=== PATIENT | male | born 1980 ===

== ENCOUNTER 2021-10-20 12:37 | Outpatient (REF) | payer OTHER, SELFPAY ==
[2021-10-20 13:09] LABS: COVID-19 Test Negative (Negative)
== END 2021-10-20 12:38 | disposition home or self-care (01) ==
LOC: HO.LAB 12:37
PROVIDERS: Visit Provider Internal Medicine
DX: Z20.822 Contact with and (suspected) exposure to COVID-19 (principal)
CPT/HCPCS: 87635; C9803

== ENCOUNTER 2023-04-04 10:17 | Inpatient (IN) | payer MEDICAID, SELFPAY ==
[2023-04-04 10:25] VITALS: BP 142/102; PULSE 117; RESP 20; TEMP 36.3; O2SAT 97; BMI 36.2
--- NOTE | 2023-04-04 12:18 | ED.ALLEREA ---
HPI - Allergic Reaction General Chief complaint: Allergic Reaction Stated complaint: ? Stung by Wasp R Hand & L Leg Infection Time Seen by Provider: 04/04/23 11:21 Source: patient Mode of arrival: ambulatory Limitations: no limitations History of Present Illness HPI narrative: 43-year-old male presents with redness, swelling, warmth to left thigh and right hand status post suspected insect bite that occurred possibly on Sunday, patient states that he woke up and noticed what appeared to be insect bites on his thigh and hand. Since then redness, pain, swelling has worsened. This is never happened to him before. He tells me he thinks it was a blue walk office that he looked up online and match the description of an insect this flying around his home however patient unsure. He reports subjective chills, fatigue, malaise. No fevers, chest pain, shortness of breath, nausea, vomiting, abdominal pain, headache, vision changes or dizziness. Related Data Allergies Allergy/AdvReac Type Severity Reaction Status Date / Time No Known Allergies Allergy Verified 04/04/23 10:28 Review of Systems Review of Systems: Constitutional : No Weight loss, No Fever, No Chills, No Fatigue, No Malaise ENT/Mouth : No sore throat, No Rhinorrhea Eyes: No Eye Pain, No Swelling, No Redness Cardiovascular : No Chest Pain, No SOB, No Dyspnea on Exertion, No Orthopnea, No Edema, No Palpitations Respiratory : No Cough, No Sputum, No Wheezing Gastrointestinal : No Nausea, No Vomiting, No Diarrhea, No Constipation, No abdominal Pain, No Hematochezia, No Melena Genitourinary : No Dysuria, No Urinary Frequency, No Hematuria, Musculoskeletal : No joint pain, No Myalgias, No Joint Swelling Skin : No Skin Lesions, + rash Neuro : No Weakness, No Numbness, No Dizziness, No Headache Psych : No Anxiety/Panic, No Depression Heme/Lymph: No Bruising, No Bleeding,No Lymphadenopathy All other systems reviewed and are negative Yes all other systems are reviewed and are negative [facility] Past Medical History Attestation statement: The following information was validated with the patient. Source: old records reviewed and nursing notes reviewed Social History Social History Advance Directives: No Advance Directives Information Provided: Yes Physical Exam ED Vital Signs: Vital Signs - 24 hr 04/04/23 10:25 Temperature 97.3 F Pulse Rate 117 H Respiratory Rate 20 Blood Pressure 142/102 H Pulse Oximetry 97 Oxygen Delivery Method Room Air BMI result Body Mass Index 36.2 vss Appearance: Alert.? Oriented X3.? No acute distress.? Head: Normocephalic, atraumatic, no step-offs or deformities Eyes: Pupils equal, round and reactive to light.? Neck: Normal inspection.? Neck supple.? CVS: Normal heart rate and rhythm.? Pulses normal.? Respiratory: No respiratory distress.? Breath sounds normal.? Abdomen: Soft and nontender.? Skin: Skin warm and dry.? Normal skin color.? Normal skin turgor.? Extremities: No lower extremity edema.? No calf ttp. 5/5 strength to bilateral upper and lower extremities + Swollen right hand w/ decreased rom d/t swelling not painful. Errythema and warmth to r hand w/ streaking to RUE also errythema and warmth L thigh w/ overlying ? insect bites. 2+ radial pulses equal and b/l. Normal UE cap refill b/l. ( images below) Neuro: Oriented X 3.? No motor deficit.? No sensory deficit. CN 2-12 intact Course Reevaluation(s) Reevaluation #1: CBC with leukocytosis, no predominance of eosinophils low suspicion that this is an acute allergic/histamine reaction likely cellulitis with streaking. Chemistry pending however plan is for hospital admission. Alex ordered, hospitalist aware and will accept admission Time: 12:48 Medications Administered Discontinued Medications Generic Name Dose Route Start Last Admin Trade Name Freq PRN Reason Stop Dose Admin Diphenhydramine HCl 50 mg 04/04/23 11:52 04/04/23 12:33 Diphenhydramine Hcl 50 Mg/Ml Vial IVPUSH 04/04/23 11:53 50 mg ONCE ONE Administration Methylprednisolone Sodium Succinate 125 mg 04/04/23 11:52 04/04/23 12:30 Methylprednisolone Sod Succ 125 Mg/2 Ml Vial IVPUSH 04/04/23 11:53 125 mg ONCE ONE Administration Medical Decision Making Medical Decision Making [facility] Narrative: 1235 43-year-old male presents with suspected bug bite to right hand and left thigh worsening over the past 3 days. Reports redness, swelling, warmth to affected areas. Physical examination with Swollen right hand w/ decreased rom d/t swelling not painful. Errythema and warmth to r hand w/ streaking to RUE also errythema and warmth L thigh w/ overlying ? insect bites. 2+ radial pulses equal and b/l. Normal UE cap refill b/l. Please refer to images in the physical exam portion of chart for further details. Concerns for allergic reaction with possible superimposed cellulitis and possible lymphangitic spread. This also could be a histamine reaction. No signs of threatened limb or septic joint at this time. Decreased range of motion likely secondary to edema not from pain. No signs of osteo Plan- labs, lactic, cultures. No indication for imaging. Will give IV steroids and benadryl and wait for labs to determine need for atbx Differential Diagnosis Differential Diagnoses: The differential diagnosis associated with the presentation includes Concerns for allergic reaction with possible superimposed cellulitis and possible lymphangitic spread. This also could be a histamine reaction. No signs of threatened limb or septic joint at this time. Decreased range of motion likely secondary to edema not from pain. No signs of osteo Admission/Observation Consideration of admission/observation: Escalation of care including admission/observation considered Likely Lab Data MDM Lab Attestation statement: I reviewed the patient's lab results. 04/04/23 12:21 04/04/23 12:21 Labs: Lab Results 04/04/23 Range/Units 12:21 WBC 13.0 H (4.8-10.8) X10*3/uL RBC 5.87 H (4.60-5.80) X10*6/uL Hgb 17.9 (14.0-18.0) g/dl Hct 52.7 H (42.0-52.0) % MCV 89.8 (80.0-98.0) fL MCH 30.5 (27.0-33.0) pg MCHC 34.0 (31.0-36.0) g/dl RDW 12.3 (11.0-16.0) % Plt Count 217 (160-400) X10*3/uL MPV 10.2 (9.4-12.4) fL Immature Gran % (Auto) 0.5 H (0.0-0.4) % Neut % (Auto) 69.7 (45-73) % Lymph % (Auto) 18.6 L (20-40) % Maries % (Auto) 7.6 (2-11) % Eos % (Auto) 3.4 (0-4) % Baso % (Auto) 0.2 (0-2) % Lymph # (Auto) 2.4 (1.2-4.9) X10*3/uL Maries # (Auto) 1.0 (0.1-1.2) X10*3/uL Eos # (Auto) 0.4 (0.0-0.4) X10*3/uL Baso # (Auto) 0.0 (0.0-0.2) X10*3/uL Abs Immat Gran (auto) 0.06 H (0.00-0.03) X10*3/uL Absolute Neuts (auto) 9.1 H (2.0-8.3) x10*3/uL Absolute Nucleated RBC 0.000 (0.0-0.012) X10*3/uL Nucleated RBC % (auto) 0.0 (0.0-0.2) /100WBC Core Measures AMI core measures followed: Yes Measure exclusions: not indicated Critical Care Time Critical Care Time Critical Care Time: Yes Total Critical Care Time: 35 Attestation: I attest to this time spent taking care of the patient, obtaining history, physical, reviewing labs, imaging, speaking to my attending, speaking to specialist. Discharge Plan Discharge Clinical Impression: Cellulitis, Allergic reaction, Swelling of right hand Patient Disposition: Still a Patient Instructions: Insect Bite or Sting (ED), General Allergic Reaction (ED), Allergy Testing (ED) Referrals: Physician,None [Primary Care Provider] - 2 days
--- NOTE | 2023-04-04 12:35 | PC.NURSE ---
labs collected and sent to lab, iv inserted by Pa, medicated per MAR
--- NOTE | 2023-04-04 12:58 | PHA.MEDREC ---
Pharmacy Consult ? Medication Reconciliation Pharmacy has completed the medication reconciliation.
--- NOTE | 2023-04-04 13:00 | PC.NURSE ---
abx infusing per mar.
--- NOTE | 2023-04-04 13:24 | PM.IMHP ---
History of Present Illness Date of Service: 04/04/23 Attending physician on admission: Ivett Churchill Chief Complaint: cellulitis, lymphangitis 43-year-old male without significant medical history presented to the ED earlier today for evaluation of an insect bite. He reports yesterday at around 02:00, he awoke and had been bit by an unknown insect. He suspects it was a wasp but he is unsure. He has no known allergies to insects. He sustained several bites on the right hand and 2 on the left thigh. The bites been itchy and then when he awoke this morning his right hand was significantly swollen and noted red streaking up the right arm. This swelling has become so significant he is unable to close his right fist. On arrival, patient afebrile but tachycardic to 117. But is otherwise normal. There is leukocytosis of 13.0 without eosinophilic predominance. Renal function and electrolyte levels normal. CRP 2.91, ESR 6. In the ED treated empirically with IV zosyn, 125 mg IV methylprednisolone, and IV Benadryl. Review of Systems Review of Systems: General: No fevers, malaise, unintentional weight loss HEENT: No blurred vision, diplopia. No sore throat, nasal congestion, rhinorrhea, sinus pain, ear pain Cardiovascular: No chest pain, palpitations, or leg edema Respiratory: No shortness of breath, wheezing, cough GI: No abdominal pain, nausea, vomiting, diarrhea, constipation, melena, hematochezia : No dysuria, hematuria, increased urinary frequency, decreased urinary output MSK: No myalgia, back pain. Neuro: No headaches, weakness, paresthesias Skin: No rashes or lesions. +swelling/erythema right hand and left thigh with insect bites [facility] Medical History (Updated 04/04/23 @ 13:33 by BALBIR Child) No pertinent past medical history Social History (Updated 04/04/23 @ 13:35 by BALBIR Child) Alcohol intake: never Patient Tobacco Use Status: Current everyday Tobacco user Cigarette Packs Per Day: 1 Meds Allergies Allergy/AdvReac Type Severity Reaction Status Date / Time No Known Allergies Allergy Verified 04/04/23 10:28 Active Medications: Current Medications Acetaminophen (Acetaminophen 325 Mg Tablet) 650 mg PO Q6H PRN PRN Reason: Pain, Mild (Pain Scale 1-3) Diphenhydramine HCl (Diphenhydramine Hcl 50 Mg/Ml Vial) 25 mg IVPUSH Q4H PRN PRN Reason: Itching Docusate Sodium (Docusate Sodium 100 Mg Capsule) 100 mg PO DAILY PRN PRN Reason: Constipation Enoxaparin Sodium (Enoxaparin Sodium 40 Mg/0.4 Ml Syringe) 40 mg SUBCUT Q24H [facility] Cefazolin Sodium/Dextrose (Ancef) 2 gm in 50 mls @ 100 mls/hr IV Q8H [facility] Methylprednisolone Sodium Succinate (Methylprednisolone Sod Succ 40 Mg/Ml Vial) 40 mg IVPUSH Q8H [facility] Ondansetron HCl (Ondansetron Hcl 4 Mg/2 Ml Vial) 4 mg IVPUSH Q8H PRN PRN Reason: Nausea and Vomiting Pharmacy Consult (Consult Rx Perform Med Rec) 1 each MISCELLANE ONCE PRN PRN Reason: Consult order Sodium Chloride (0.9 % Sodium Chloride Flush 3 Ml Syringe) 3 ml IVFLUSH QSHIFT [facility] Home Medications Medication Instructions Recorded Confirmed Last Taken Type No Known Home Meds 04/04/23 04/04/23 Unknown History Physical Exam Vital Signs and Narrative: Vital Signs: Last Vital Signs Temp 97.3 F 04/04/23 10:25 Pulse 117 H 04/04/23 10:25 Resp 20 04/04/23 10:25 BP 142/102 H 04/04/23 10:25 Pulse Ox 97 04/04/23 10:25 O2 Del Method Room Air 04/04/23 10:25 BMI result Body Mass Index 36.2 Constitutional - Awake and Alert, No apparent distress Eyes - PERRLA, EOMI Cardiovascular - S1S2, RRR, No edema Respiratory - Normal lung expansion, Normal respiratory effort, No respiratory distress, CTA bilaterally Extremities - no calf tenderness bilaterally, no swelling. Unable to close right hand to make fist 2/2 swelling Skin - Warm/Dry. Significant swelling, warmth, erythema right hand with tiny punctures on the dorsum of the hand with erythematous streaking extending from the hand to the axilla. There are also two punctures on the left thigh with surround erythema and wamrth. See photos Neurological - Alert & oriented x3 Results Labs 04/04/23 12:21 04/04/23 12:21 Labs: Laboratory Results - last 24 hr 04/04/23 04/04/23 04/04/23 12:21 12:21 12:21 MCV 89.8 MCH 30.5 MCHC 34.0 RDW 12.3 Plt Count 217 MPV 10.2 Immature Gran % (Auto) 0.5 H Neut % (Auto) 69.7 Lymph % (Auto) 18.6 L Grainger % (Auto) 7.6 Eos % (Auto) 3.4 Baso % (Auto) 0.2 Lymph # (Auto) 2.4 Grainger # (Auto) 1.0 Eos # (Auto) 0.4 Baso # (Auto) 0.0 Abs Immat Gran (auto) 0.06 H Absolute Neuts (auto) 9.1 H Absolute Nucleated RBC 0.000 Nucleated RBC % (auto) 0.0 ESR Anion Gap 14 Estim Creat Clear Calc 128.4 Estimated GFR > 60 Random Glucose 123 H Lactic Acid 1.6 Calcium 10.2 Magnesium 2.1 Total Bilirubin 0.6 AST 13 ALT 26 Alkaline Phosphatase 75 C-Reactive Protein 2.91 H Total Protein 8.1 H Albumin 4.5 COVID-19 ([facility]) COVID-19 Dtime 04/04/23 04/04/23 12:21 12:28 MCV MCH MCHC RDW Plt Count MPV Immature Gran % (Auto) Neut % (Auto) Lymph % (Auto) Grainger % (Auto) Eos % (Auto) Baso % (Auto) Lymph # (Auto) Grainger # (Auto) Eos # (Auto) Baso # (Auto) Abs Immat Gran (auto) Absolute Neuts (auto) Absolute Nucleated RBC Nucleated RBC % (auto) ESR 6 Anion Gap Estim Creat Clear Calc Estimated GFR Random Glucose Lactic Acid Calcium Magnesium Total Bilirubin AST ALT Alkaline Phosphatase C-Reactive Protein Total Protein Albumin COVID-19 ([facility]O) Negative COVID-19 Clin [facility] See Note Assessment and Plan (1) Cellulitis: Status: Acute (2) Swelling of right hand: Status: Acute (3) Allergic reaction: Status: Acute Plan 43-year-old male without significant medical history admitted to the hospital for for the management of insect bite with cellulitis, lymphangitis, and sepsis. #Insect bites with Acute cellulitis R hand with lymphangitic streaking and sepsis -Leukocytosis 13.0, tachycardia. Lactic acid normal, no end organ damage. No severe sepsis/shock -IV cefazolin q8h -IV methylprednisolone 40mg BID, transition to PO as appropriate -IV benadryl q4h prn -Follow CBC, cultures #Cigarette smoker -smokes 1ppd, declines NRT -Smoking cessation counseling provided DVT prophylaxis- lovenox Full code Pt requires inpt stay at least 2 midnights for management of acute cellulitis with lymphagitis and sepsis requiring IV abx. Time Spent With Patient Time: Total time managing care of this patient today ____ minutes. Quality Stroke Does the patient have a stroke diagnosis?: No VTE Prior VTE?: No VTE Risk Level:: Medical - moderate - high VTE Device Contraindication: Treatment Not Indicated VTE Drug Contraindication: N/A - Med Ordered
[2023-04-04 14:36] VITALS: BP 136/87; PULSE 94; RESP 18; TEMP 36.7; O2SAT 97
--- NOTE | 2023-04-04 17:04 | PC.NURSE ---
report given to ALEX Wallacedirector of surgery.
[2023-04-04 17:27] VITALS: BP 128/80; PULSE 95; RESP 21; TEMP 36.1; O2SAT 96
[2023-04-04 20:00] VITALS: BP 134/76; PULSE 100; RESP 20; TEMP 35.9; O2SAT 100
[2023-04-05 04:00] VITALS: BP 126/72; PULSE 90; RESP 16; TEMP 36; O2SAT 95
[2023-04-05 05:58] LABS: MANUAL DIFF FLAG NO
[2023-04-05 06:02] LABS: Basophils Percent Auto 0.2 % (0-2); Eosinophils Percent Auto 0.1 % (0-4); Hematocrit 48.9 % (42.0-52.0); Hemoglobin 16.6 g/dl (14.0-18.0); Imm Gran Abs Auto 0.12 X10*3/uL (0.00-0.03); Imm Gran Pct Auto 0.7 % (0.0-0.4); Lymphocytes Absolute Auto 1.8 X10*3/uL (1.2-4.9); Lymphocytes Percent Auto 10.2 % (20-40); Mean Corpuscular HGB Conc 33.9 g/dl (31.0-36.0); Mean Corpuscular Hemoglobin 30.8 pg (27.0-33.0); Mean Corpuscular Volume 90.7 fL (80.0-98.0); Mean Platelet Volume 10.2 fL (9.4-12.4); Monocytes Percent Auto 5.7 % (2-11); Neutrophils Percent Auto 83.1 % (45-73); Platelet Count 221 X10*3/uL (160-400); Red Blood Count 5.39 X10*6/uL (4.60-5.80); Red Cell Distribution Width 12.3 % (11.0-16.0); White Blood Count 18.1 X10*3/uL (4.8-10.8)
[2023-04-05 06:20] LABS: Anion Gap 14 (12-20)
[2023-04-05 06:41] LABS: Blood Urea Nitrogen 16 mg/dL (9-16); Calcium 9.8 mg/dL (8.4-10.2); Carbon Dioxide 23 mmol/L (22-29); Chloride 107 mmol/L (96-108); Creatinine Clr Calc Pharmacy 135.7; Estimated Glomerular Filt Rate > 60; Glucose Random 117 mg/dL (60-115); Potassium 4.8 mmol/L (3.3-5.1); Sodium 139 mmol/L (135-145)
[2023-04-05 07:59] VITALS: BP 116/76; PULSE 87; RESP 18; TEMP 36.5; O2SAT 96
--- NOTE | 2023-04-05 09:07 | HO.PM.IMPN ---
Subjective Subjective Date of Service: 04/05/23 Interval History: R hand swelling improved No fever Still has lymphangtic streaking Review of Systems Review of Systems: Yes all other systems are reviewed and are negative Physical Exam Vital Signs: Vital Signs: Last Vital Signs Temp 97.7 F 04/05/23 07:59 Pulse 87 04/05/23 07:59 Resp 18 04/05/23 07:59 BP 116/76 04/05/23 07:59 Pulse Ox 96 04/05/23 07:59 O2 Del Method Room Air 04/05/23 07:59 BMI result Body Mass Index 36.2 Gen: in no acute distress HEENT: sclera anicteric, moist mucus membranes Neck: supple Lungs: clear to auscultation bilaterally Heart: regular rate and rhythm, no murmurs Abd: soft, non-tender, non-distended Ext: R hand swollen improved from yesterday Skin: R hand with induration and erythema improved from yesterday, lymphangitic streaking on volar surface of forearm and upper arm, erythema upper L thigh improved from yesterday Neuro: alert and oriented x3, no focal findings Psych: appropriate affect Objective Data Active Medications Acetaminophen (Acetaminophen 325 Mg Tablet) 650 mg PO Q6H PRN PRN Reason: Pain, Mild (Pain Scale 1-3) Diphenhydramine HCl (Diphenhydramine Hcl 50 Mg/Ml Vial) 25 mg IVPUSH Q4H PRN PRN Reason: Itching Last Admin: 04/05/23 03:13 Dose: 25 mg Documented By: SAYRA Docusate Sodium (Docusate Sodium 100 Mg Capsule) 100 mg PO DAILY PRN PRN Reason: Constipation Enoxaparin Sodium (Enoxaparin Sodium 40 Mg/0.4 Ml Syringe) 40 mg SUBCUT Q24H [facility] Last Admin: 04/04/23 13:31 Dose: 40 mg Documented By: GILMA Cefazolin Sodium/Dextrose (Ancef) 2 gm in 50 mls @ 100 mls/hr IV Q8H [facility] Last Infusion: 04/05/23 04:07 Dose: 0 mls/hr Documented By: SAYRA Methylprednisolone Sodium Succinate (Methylprednisolone Sod Succ 40 Mg/Ml Vial) 40 mg IVPUSH Q8H [facility] Last Admin: 04/05/23 06:02 Dose: 40 mg Documented By: SAYRA Ondansetron HCl (Ondansetron Hcl 4 Mg/2 Ml Vial) 4 mg IVPUSH Q8H PRN PRN Reason: Nausea and Vomiting Pharmacy Consult (Consult Rx Perform Med Rec) 1 each MISCELLANE ONCE PRN PRN Reason: Consult order Sodium Chloride (0.9 % Sodium Chloride Flush 3 Ml Syringe) 3 ml IVFLUSH QSHIFT [facility] Last Admin: 04/05/23 07:34 Dose: 3 ml Documented By: MARY Labs 04/05/23 05:31 04/05/23 05:31 Labs: Laboratory Results - last 24 hr 04/04/23 04/04/23 04/04/23 12:21 12:21 12:21 MCV 89.8 MCH 30.5 MCHC 34.0 RDW 12.3 Plt Count 217 MPV 10.2 Immature Gran % (Auto) 0.5 H Neut % (Auto) 69.7 Lymph % (Auto) 18.6 L Hemphill % (Auto) 7.6 Eos % (Auto) 3.4 Baso % (Auto) 0.2 Lymph # (Auto) 2.4 Hemphill # (Auto) 1.0 Eos # (Auto) 0.4 Baso # (Auto) 0.0 Abs Immat Gran (auto) 0.06 H Absolute Neuts (auto) 9.1 H Absolute Nucleated RBC 0.000 Nucleated RBC % (auto) 0.0 ESR Anion Gap 14 Estim Creat Clear Calc 128.4 Estimated GFR > 60 Random Glucose 123 H Estimat Average Glucose Hemoglobin A1c % Lactic Acid 1.6 Calcium 10.2 Magnesium 2.1 Total Bilirubin 0.6 AST 13 ALT 26 Alkaline Phosphatase 75 C-Reactive Protein 2.91 H Total Protein 8.1 H Albumin 4.5 COVID-19 ([facility]) COVID-19 Clin Com 04/04/23 04/04/23 04/05/23 12:21 12:28 05:31 MCV 90.7 MCH 30.8 MCHC 33.9 RDW 12.3 Plt Count 221 MPV 10.2 Immature Gran % (Auto) 0.7 H Neut % (Auto) 83.1 H Lymph % (Auto) 10.2 L Hemphill % (Auto) 5.7 Eos % (Auto) 0.1 Baso % (Auto) 0.2 Lymph # (Auto) 1.8 Hemphill # (Auto) 1.0 Eos # (Auto) 0.0 Baso # (Auto) 0.0 Abs Immat Gran (auto) 0.12 H Absolute Neuts (auto) 15.0 H Absolute Nucleated RBC 0.000 Nucleated RBC % (auto) 0.0 ESR 6 Anion Gap Estim Creat Clear Calc Estimated GFR Random Glucose Estimat Average Glucose Hemoglobin A1c % Lactic Acid Calcium Magnesium Total Bilirubin AST ALT Alkaline Phosphatase C-Reactive Protein Total Protein Albumin COVID-19 (NEO) Negative COVID-19 Clin Com See Note 04/05/23 04/05/23 05:31 05:31 MCV MCH MCHC RDW Plt Count MPV Immature Gran % (Auto) Neut % (Auto) Lymph % (Auto) Hemphill % (Auto) Eos % (Auto) Baso % (Auto) Lymph # (Auto) Hemphill # (Auto) Eos # (Auto) Baso # (Auto) Abs Immat Gran (auto) Absolute Neuts (auto) Absolute Nucleated RBC Nucleated RBC % (auto) ESR Anion Gap 14 Estim Creat Clear Calc 135.7 Estimated GFR > 60 Random Glucose 117 H Estimat Average Glucose 105 Hemoglobin A1c % 5.3 Lactic Acid Calcium 9.8 Magnesium Total Bilirubin AST ALT Alkaline Phosphatase C-Reactive Protein Total Protein Albumin COVID-19 (NEO) COVID-19 Clin Com Assessment and Plan (1) Cellulitis: Status: Acute (2) Allergic reaction: Status: Acute Assessment and Plan: d#2 43yo M with no PMHx admitted with sepsis physiology from likely insect bite/sting with concern for cellulitis/lymphangitis # lymphangitis/cellulitis - cefazolin d#2, follow BCx, not diabetic # allergic reaction to unknown insect bite/sting - continue IV methylprednisolone, IV diphenhydarmine # leukocytosis - likely steroid effect # tobacco abuse - declines nRT # VTE ppx: LMWH # dispo: likely home tomorrow if continued improvement Time Spent With Patient Time: Total time managing care of this patient today _35___ minutes. Quality Stroke Does the patient have a stroke diagnosis?: No VTE Prior VTE?: No VTE Risk Level:: Medical - moderate - high VTE Device Contraindication: Treatment Not Indicated VTE Drug Contraindication: N/A - Med Ordered
--- NOTE | 2023-04-05 11:01 | MHC.CM.PN ---
CM MET WITH PT AT BEDSIDE. PT LIVES WITH FAMILY. INDEPENDENT AND SELF EMPLOYED. NO HCP (WOULD LIKE TO THINK ABOUT COMPLETING ONE) NO PCP ([facility] PROVIDED) +ABRAHAM MCPHERSON X3 DP: HOME, NO SERVICES ANTICIPATED. FAMILY WILL TRANSPORT. CM WILL CONTINUE TO FOLLOW FOR DC PLAN/NEEDS.
[2023-04-05 15:15] VITALS: BP 129/76; PULSE 105; RESP 18; TEMP 36.6; O2SAT 93
[2023-04-05 19:45] VITALS: BP 136/80; PULSE 97; RESP 18; TEMP 36.2; O2SAT 95
[2023-04-06 04:00] VITALS: BP 134/84; PULSE 87; RESP 16; TEMP 36; O2SAT 97
[2023-04-06 05:42] LABS: Hematocrit 46.9 % (42.0-52.0); Hemoglobin 15.6 g/dl (14.0-18.0); Mean Corpuscular HGB Conc 33.3 g/dl (31.0-36.0); Mean Corpuscular Hemoglobin 30.6 pg (27.0-33.0); Mean Corpuscular Volume 92.1 fL (80.0-98.0); Mean Platelet Volume 10.4 fL (9.4-12.4); Platelet Count 241 X10*3/uL (160-400); Red Blood Count 5.09 X10*6/uL (4.60-5.80); Red Cell Distribution Width 12.4 % (11.0-16.0); White Blood Count 20.6 X10*3/uL (4.8-10.8)
[2023-04-06 07:46] VITALS: BP 133/80; PULSE 80; RESP 18; TEMP 36.6; O2SAT 97
--- NOTE | 2023-04-06 12:09 | PM.DS ---
DS: Providers Provider Date of Service: 04/06/23 Date of admission: 04/04/23 13:15 Date of discharge: 04/06/23 Primary care physician: None Physician DS: Diagnosis Discharge Diagnosis (1) Cellulitis: Status: Acute (2) Allergic reaction: Status: Acute (3) Lymphangitis: Status: Acute (4) Sepsis: Status: Acute DS: Summary Hospital Course Hospital Course: from admit H+P 04/04/23 by hospitalist BALBIR Antunez: 43-year-old male without significant medical history presented to the ED earlier today for evaluation of an insect bite.? He reports yesterday at around 02:00, he awoke and had been bit by an unknown insect.? He suspects it was a wasp but he is unsure.? He has no known allergies to insects.? He sustained several bites on the right hand and 2 on the left thigh.? The bites been itchy and then when he awoke this morning his right hand was significantly swollen and noted red streaking up the right arm.? This swelling has become so significant he is unable to close his right fist.? On arrival, patient afebrile but tachycardic to 117.? But is otherwise normal.? There is leukocytosis of 13.0 without eosinophilic predominance.? Renal function and electrolyte levels normal.? CRP 2.91, ESR 6. In the ED treated empirically with IV zosyn, 125 mg IV methylprednisolone, and IV Benadryl. 43yo M with no PMHx admitted with sepsis physiology from likely insect bite/sting with concern for cellulitis/lymphangitis # lymphangitis/cellulitis - Admitted to med/surg and treated with cefazolin x48h. Blood cultures negative. Not diabetic. Redness/swelling improved. Discharged on 5 days of cefadroxil. # allergic reaction to unknown insect bite/sting - Treated with IV methylprednisolone + as-needed diphenhydramine. Discharged on 5-day prednisone taper and prn diphenhydarmine. # leukocytosis - likely steroid effect # tobacco abuse - NRT prescribed Time Spent with Patient Time attestation: Total time managing care of this patient today __35__ minutes. Discharge coordination time: Greater than 30 minutes Quality: Safe Use of Opioids Does Pt have an Active Cancer Diagnosis on the Problem List?: No Quality: Stroke Does the patient have a stroke diagnosis?: No Physical Exam Vital Signs: Vital Signs: Last Vital Signs Temp 97.8 F 04/06/23 07:46 Pulse 80 04/06/23 07:46 Resp 18 04/06/23 07:46 BP 133/80 04/06/23 07:46 Pulse Ox 97 04/06/23 07:46 O2 Del Method Room Air 04/06/23 07:46 BMI result Body Mass Index 36.2 Gen: in no acute distress HEENT: sclera anicteric, moist mucus membranes Neck: supple Lungs: clear to auscultation bilaterally Heart: regular rate and rhythm, no murmurs Abd: soft, non-tender, non-distended Ext: R hand swollen improved from yesterday Skin: R hand resolving induration and erythema, post-inflammatory lymphangitic streaking on volar surface of forearm and upper arm, erythema upper L thigh improved Neuro: alert and oriented x3, no focal findings Psych: appropriate affect DS: Data Data Completed and Pending Completed studies during hospitalization [Text1]: Laboratory Results WBC 20.6 X10*3/uL (4.8-10.8) H 04/06/23 05:09 RBC 5.09 X10*6/uL (4.60-5.80) 04/06/23 05:09 Hgb 15.6 g/dl (14.0-18.0) 04/06/23 05:09 Hct 46.9 % (42.0-52.0) 04/06/23 05:09 MCV 92.1 fL (80.0-98.0) 04/06/23 05:09 MCH 30.6 pg (27.0-33.0) 04/06/23 05:09 MCHC 33.3 g/dl (31.0-36.0) 04/06/23 05:09 RDW 12.4 % (11.0-16.0) 04/06/23 05:09 Plt Count 241 X10*3/uL (160-400) 04/06/23 05:09 MPV 10.4 fL (9.4-12.4) 04/06/23 05:09 Immature Gran % (Auto) 0.7 % (0.0-0.4) H 04/05/23 05:31 Neut % (Auto) 83.1 % (45-73) H 04/05/23 05:31 Lymph % (Auto) 10.2 % (20-40) L 04/05/23 05:31 Sargent % (Auto) 5.7 % (2-11) 04/05/23 05:31 Eos % (Auto) 0.1 % (0-4) 04/05/23 05:31 Baso % (Auto) 0.2 % (0-2) 04/05/23 05:31 Lymph # (Auto) 1.8 X10*3/uL (1.2-4.9) 04/05/23 05:31 Sargent # (Auto) 1.0 X10*3/uL (0.1-1.2) 04/05/23 05:31 Eos # (Auto) 0.0 X10*3/uL (0.0-0.4) 04/05/23 05:31 Baso # (Auto) 0.0 X10*3/uL (0.0-0.2) 04/05/23 05:31 Abs Immat Gran (auto) 0.12 X10*3/uL (0.00-0.03) H 04/05/23 05:31 Absolute Neuts (auto) 15.0 x10*3/uL (2.0-8.3) H 04/05/23 05:31 Absolute Nucleated RBC 0.000 X10*3/uL (0.0-0.012) 04/06/23 05:09 Nucleated RBC % (auto) 0.0 /100WBC (0.0-0.2) 04/06/23 05:09 ESR 6 MM/HR (0-15) 04/04/23 12:28 Sodium 139 mmol/L (135-145) 04/05/23 05:31 Potassium 4.8 mmol/L (3.3-5.1) 04/05/23 05:31 Chloride 107 mmol/L (96-108) 04/05/23 05:31 Carbon Dioxide 23 mmol/L (22-29) 04/05/23 05:31 Anion Gap 14 (12-20) 04/05/23 05:31 BUN 16 mg/dL (9-16) 04/05/23 05:31 Creatinine 0.88 mg/dL (0.5-1.4) 04/05/23 05:31 Estim Creat Clear Calc 135.7 04/05/23 05:31 Estimated GFR > 60 04/05/23 05:31 Random Glucose 117 mg/dL (60-115) H 04/05/23 05:31 Estimat Average Glucose 105 mg/dL 04/05/23 05:31 Hemoglobin A1c % 5.3 % 04/05/23 05:31 Lactic Acid 1.6 mmol/L (0.5-2.0) 04/04/23 12:21 Calcium 9.8 mg/dL (8.4-10.2) 04/05/23 05:31 Magnesium 2.1 mg/dL (1.6-2.6) 04/04/23 12:21 Total Bilirubin 0.6 mg/dL (0.0-1.0) 04/04/23 12:21 AST 13 U/L (5-37) 04/04/23 12:21 ALT 26 U/L (0-40) 04/04/23 12:21 Alkaline Phosphatase 75 U/L (39-117) 04/04/23 12:21 C-Reactive Protein 1.20 mg/dL (< or = 0.50) H 04/06/23 05:09 Total Protein 8.1 g/dL (6.5-8.0) H 04/04/23 12:21 Albumin 4.5 g/dL (3.5-5.0) 04/04/23 12:21 COVID-19 ([facility]) Negative (Negative) 04/04/23 12:21 COVID-19 Clin Com See Note 04/04/23 12:21 Discharge Plan Discharge Anticipated Discharge Date/Time: 04/06/23 12:04 Patient Disposition: Home, Self-Care Discharge Diagnosis: cellulitis allergic reaction to insect bite/sting Referrals: Physician,None [Primary Care Provider] - 2 days Discharge Medications: New diphenhydramine HCl 25 mg tablet 25 mg PO TID PRN (Reason: itching) Qty: 20 0RF cefadroxil 1 gram tablet 1,000 mg PO BID Qty: 10 0RF prednisone 10 mg tablet See Rx Instructions .ROUTE .COMPLEX Qty: 15 0RF Rx Instructions: 5 tabs on 04/07, 4 tabs on 04/08, 3 tabs on 04/09, 2 tabs on 04/10, 1 tab on 04/11 nicotine (polacrilex) 2 mg gum 2 mg buccal Q2H Qty: 100 0RF Discharge Orders: Discharge Order (Routine); Ordered 04/06/23 Ordered By: Ivett Churchill Diet: Advance to usual diet Activity on Discharge: As tolerated Stand Alone Forms: Patient Portal Discharge page Care Plan Goals: recovery from infection + allergy to insect bite/sting Health Concerns: cellulitis allergic reaction to insect bite/sting Plan of Treatment: cefadroxil 1g twice daily for 5 days prednisone 50 mg on 04/07, then 40 mg on 04/08, then 30 mg on 04/09, then 20 mg on 04/10, then 10 mg on 04/11 diphenhydramine as needed for itching stop smoking; use nicotine gum to help Please follow up with your primary care doctor within 1 week. Return to the hospital if you experience recurrent or worsening symptoms. Assessment: See Discharge Summary. Patient Instructions: Insect Bite or Sting (ED), General Allergic Reaction (ED), Allergy Testing (ED)
--- NOTE | 2023-04-06 12:41 | MHC.CM.PN ---
EMR reviewed and per MD rounds, pt medically cleared for D/C home self-care, pts family will transport.
== END 2023-04-06 13:00 | disposition home or self-care (01) | DRG 720 ==
LOC: HO.ED 12:39 → HO.EDOVER 13:35 → HO.S3 16:56
PROVIDERS: Admitting Provider Physician Assistant; Emergency Provider Emergency Medicine; Visit Provider Family Medicine
DX: A41.9 Sepsis, unspecified organism (principal); D72.829 Elevated white blood cell count, unspecified; T38.0X5A Adverse effect of glucocorticoids and synthetic analogues, initial encounter; F17.210 Nicotine dependence, cigarettes, uncomplicated; Z71.6 Tobacco abuse counseling; Z20.822 Contact with and (suspected) exposure to COVID-19; T63.481A Toxic effect of venom of other arthropod, accidental (unintentional), initial encounter
CPT/HCPCS: 36415; 80048; 80053; 83036; 83605; 83735; 85025; 85027; 85652; 86140; 87040; 87635; 99221; 99285; J0690; J1200; J1650; J2543; J2920; J2930